=== PATIENT | female | born 2000 | race Caucasian/White ===

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

== ENCOUNTER 2019-04-02 03:40 | Inpatient (IN) | payer SELFPAY ==
[2019-04-02] MEDS: Lactated Ringers 500 ML 999 ML IV ×2 (04:45→06:06)
[2019-04-02 05:17] LABS: Absolute Lymphocyte Count 2.12 X10^3/uL (0.83-4.51); Absolute Neutrophil Count 12.4 X10^3/uL (2.0-7.7); Basophil# 0.03 X10^3/uL; Basophil% 0.2 % (0-1); Eosinophil# 0.07 X10^3/uL; Eosinophils% 0.4 % (0-5); Hematocrit 39.9 % (37-47); Hemoglobin 12.9 g/dL (12.0-15.0); Lymphocyte # 2.12 X10^3/ul (4.0); Lymphocyte % 13.4 % (19-41); Mean Corp Hgb Conc 32.3 g/dL (32-36); Mean Corpuscular Hgb 30.4 pg (27.0-32.0); Mean Corpuscular Volume 94.1 fL (81-99); Mean Platelet Vol. 10.8 fl (6.2-12.0); Monocyte# 1.18 X10^3/uL; Monocyte% 7.4 % (0-10); NRBC Flagged by Analyzer 0 % (0-5); Neutrophil # 12.37 X10^3/uL (2.7-7.7); Neutrophil % 77.9 % (47-70); Platelet Count 224 K/mm3 (150-450); RBC Distribution Width CV 13.3 % (11.6-14.6); RBC Distribution Width SD 45.6 fl (35.1-43.9); Red Blood Count 4.24 M/mm3 (4.2-5.4); White Blood Count 15.9 K/mm3 (4.4-11.0)
[2019-04-02] MEDS: Lactated Ringers 1,000 ML 200 ML IV ×2 (05:45→08:17)
[2019-04-02] MEDS: fentaNYL-bupivacaine (epidural) 100 ML BAG EPIDURAL (06:24)
--- NOTE | 2019-04-02 08:33 | PCM.HP.OB ---
History Date of Admission: 04/02/19 Final SHERRY: 04/02/19 Final SHERRY Source: US <20 weeks Gestational age: 40 Weeks and 0 Days History of this : This is a 18 year-old, avid 2 para 1 presented at 40 weeks gestation complaining contractions started on the evening of 04/01/2019. When she arrived to labor and delivery early in the morning of 04/02/2019 she was found to be riaz regularly and in labor. was complicated to date by history of depression, tobacco use, history of chlamydia. She has a history of one previous full-term vaginal delivery. Allergies azithromycin [From Zithromax] Allergy (Verified 10/28/17 19:56) Anaphylaxis brompheniramine [From Dimetapp (brompheniramine-PPA)] Allergy (Verified 10/28/17 19:56) Rash phenylpropanolamine [From Dimetapp (brompheniramine-PPA)] Allergy (Verified 10/28/17 19:56) Rash Home Medications: Home Medications Ferrous Sulfate 2 tab PO DAILY 04/02/19 Prenatabs FA 1 tab PO DAILY 04/02/19 Smoking Status: Light Smoker (<10/day) Alcohol: None Number of Fetus(es): 1 NST - FHR Rate Baby A Baseline: normal Variability:: Moderate NST Reactive:: Appropriate for gestational age Uterine Activity:: regular ctxs History Past Pregnancies: Past Pregnancies Delivery Date Name GA/ Weeks Outcome Route Wt Infant Sex Labor Length Anesthesia Delivery Location Provider FOB Expected Delivery Method: Spontaneous Vaginal Review of Systems Constitutional: Denies: Chills, Fever Cardiovascular: Denies: Chest Pain Respiratory: Denies: Cough Genitourinary: Denies: Dysuria Neurological: Denies: Balance problems, Blurred vision Physical Exam General: Alert, Cooperative, No apparent distress Lungs: Normal air movement Abdomen: Soft, Non Tender, Non-Distended, Gravid, Appropriate for Gestational Age Assessment/Plan This is a 18 year-old, avid 2 para 1 at 40 weeks gestation in active labor. Estimated weight is less than 4500 g clinically and pelvis is clinically adequate to expect vaginal delivery. May have epidural, nitrous oxide or IV pain medication as needed for pain control and as indicated.
[2019-04-02] MEDS: Oxytocin 30 units/NS 500 ml 30 UNITS/500 ML IV.SOLN 334 UNITS IV (10:36)
--- NOTE | 2019-04-02 10:50 | PCM.OPRPT ---
Vaginal Delivery Maternal Presentation: Active Labor Amniotic Membrane Rupture Type: Artificial Amniotic Fluid Description: Clear Final SHERRY: 04/02/19 Final SHERRY Source: US <20 weeks Gestational age: 40 Weeks and 0 Days Date of Procedure: 04/02/19 Pre-Operative Diagnosis: labor Post-Operative Diagnosis: same Surgery/ Procedure Performed: Spontaneous Vaginal Delivery Type of Anesthesia: Epidural Description of Procedure: A vigorous female was delivered ROT over a second-degree perineal laceration. The remainder the was delivered with maternal pushing and gentle traction only in less than 15 seconds. The Pitocin infusion was initiated for active management of the third stage. The cord was clamped and cut after 1 minute. The infant was attended to by the waiting nursing staff. The placenta was delivered spontaneously and intact. The cervix and vagina were intact. The second-degree perineal laceration was repaired with 3-0 Vicryl suture in a running standard fashion. Sponge and needle counts were correct. A vaginal sweep was completed by me. Placental Delivery Description: Spontaneous Placenta Disposition: [facility] Cord Vessel Description: 3 Vessels Cord Entanglement: None Drain: Jose to straight drain Estimated Blood Loss: 300 Infant A gender: Female (1 minute): 9 (5 minute): 9 Episiotomy Description: None Laceration: 2nd degree - perineal Medications given after delivery: IV Pitocin Complications: None
[2019-04-02 15:29] VITALS: BP 103/57; PULSE 79; RESP 16; TEMP 37.1; O2SAT 97
--- NOTE | 2019-04-02 15:59 | NURSING ---
bruising noted to right side of perineum next to lac repair, soft to touch, will continue to monitor.
[2019-04-02] MEDS: Naproxen 250 MG Tablet 500 MG PO (20:05)
[2019-04-02 20:49] VITALS: BP 89/51; PULSE 76; RESP 16; TEMP 36.4
[2019-04-03 00:19] VITALS: BP 83/66; PULSE 94; RESP 16; TEMP 36.7
[2019-04-03 04:09] VITALS: BP 106/61; PULSE 78; RESP 16; TEMP 36.2
--- NOTE | 2019-04-03 09:17 | PCM.PN.OB ---
Subjective: Unable to void last night, catheter back in. Patient reports she had same problem after last delivery. Average lochia. - Physical Exam Vitals/I&O's: Vital Signs Temp Pulse Resp BP Pulse Ox 97.1 F L 78 16 106/61 97 04/03/19 04:09 04/03/19 04:09 04/03/19 04:09 04/03/19 04:09 04/02/19 15:29 Oxygen Delivery Method Room Air Weight: 70.307 kg Intake and Output for Last 24 Hours 04/01/19 04/02/19 04/03/19 23:59 23:59 23:59 Intake Total 3666.17 / 3666.17 Output Total 3400 / 3400 675 / 675 Balance 266.17 / 266.17 -675 / -675 General: Alert, Cooperative, No apparent distress Laboratory Results 04/02/19 12:35: Screen NEGATIVE, Baby's Blood Type A POSITIVE, Baby's TATE NEGATIVE Current Medications Acetaminophen (Tylenol) 1,000 mg PO Q8H PRN PRN PRN Reason: Pain Score 1-3/10 Bisacodyl (Dulcolax) 10 mg RECTAL UD PRN PRN Reason: If no BM Dibucaine (Dibucaine) 1 applic TOPICAL TID PRN PRN; Protocol PRN Reason: Discomfort Hydrocortisone (Hytone) 1 applic TOPICAL TID PRN PRN; Protocol PRN Reason: Discomfort Methylergonovine Maleate (Methergine) 0.2 mg IM X1 PRN PRN Reason: Excess bleeding/uterine atony Naproxen (Naprosyn) 500 mg PO Q8H PRN PRN PRN Reason: Pain Score 1-3/10 Last Admin: 04/02/19 20:05 Dose: 500 mg Documented by: Ondansetron HCl (Zofran) 4 mg IV Q4H PRN PRN PRN Reason: Nausea Prochlorperazine Edisylate (Compazine Iv) 10 mg IV Q6H PRN PRN PRN Reason: NAUSEA/VOMITING Senna/Docusate Sodium (Senokot-S, Airam-Colace) 1 - 2 tablet PO DAILY PRN PRN PRN Reason: Constipation Simethicone (Mylicon) 80 mg PO PCHS PRN PRN Reason: Indigestion/Stomach pain Sodium Chloride () 5 - 15 ml IV UD PRN PRN Reason: SALINE FLUSH Medical Necessity - Tobacco Use Smoking Status: Light Smoker (<10/day) Assessment/Plan PPD#1 s/p is and doing well d/c moise and voiding trial today ok for d/c home later if desires
[2019-04-03 10:15] VITALS: BP 94/48; PULSE 78; RESP 16; TEMP 36.6; O2SAT 97
--- NOTE | 2019-04-03 13:03 | DCINST_ITS ---
Discharge Diet: No Restrictions Discharge Activity: Return to Normal Activity, May not drive while taking narcotic pain medications., May Shower May resume sexual activity in: 4-6 weeks Additional Activity Instructions:: Nothing in the vagina for 4-6 weeks. You may return to work/school in 6 weeks. Call your doctor if your incision/area has: Continuous Slow Oozing, Sudden Increased Bleeding, Increased Pain/ Swelling, Increased Redness, Foul Smelling Discharge Additional Instructions: If you experience any of the following, contact your healthcare provider. * Bleeding that soaks a pad every hour for 2 hours * Fever 100.4 or higher * Unrelieved incision or abdominal pain * Swelling, redness, discharge or bleeding from your incision or episiotomy site * Your incision begins to separate * Problems urinating (including inability to urinate or burning while urinating). * Visual changes * Severe headache * Flu-like symptoms * Pain or redness in one of both of your breasts * Pain, warmth, tenderness or swelling in your legs, especially the calf area * Frequent nausea and vomiting * Symptoms of depression or anxiety If you experience any of the following, call 911 or go to the nearest Emergency Room. * Chest pain * Problems breathing * Seizure activity * Partial or complete paralysis of a body part, slurred speech, weakness or drooping of the face, or a sudden inability to walk or hold your balance Allergies/Adverse Reactions: Allergies azithromycin [From Zithromax] Allergy (Verified 10/28/17 19:56) Anaphylaxis brompheniramine [From Dimetapp (brompheniramine-PPA)] Allergy (Verified 10/28/17 19:56) Rash phenylpropanolamine [From Dimetapp (brompheniramine-PPA)] Allergy (Verified 10/28/17 19:56) Rash Medications to take at Discharge Ferrous Sulfate 2 tab PO DAILY 04/02/19 Prenatabs FA 1 tab PO DAILY 04/02/19 Ibuprofen [Motrin] 800 mg PO TID PRN PRN #60 tab 04/03/19 The following prescriptions were given: Ibuprofen [Motrin] 800 mg PO TID PRN PRN #60 tab PRN Reason: Pain Transmission Status: Pending to [facility]/pharmacy #[id number] Please Follow Up With: Mary Alice Perez MD - [phone] When: Call to make an appointment in our office in 1-2 and 6 weeks or as needed Primary Care Physician: Care Physician,No Primary [Primary Care Provider] - Test Results: Test results from this visit will be discussed in further detail at your follow- up appointment, if applicable.
[2019-04-03 14:10] VITALS: BP 104/59; PULSE 92; TEMP 36.3; O2SAT 96
== END 2019-04-03 18:00 | disposition home or self-care (01) | DRG 807 ==
PROVIDERS: Admitting Provider Obstetrics & Gynecology; Referring Provider Obstetrics & Gynecology; Visit Provider Obstetrics & Gynecology
DX: O70.1 Second degree perineal laceration during delivery (principal); Z37.0 Single live birth; Z3A.40 40 weeks gestation of pregnancy; O99.334 Smoking (tobacco) complicating childbirth; F17.200 Nicotine dependence, unspecified, uncomplicated
CPT/HCPCS: 59025; 59050; 85025; 85461; 86850; 86900; 86901; 90384; 99218; J7120; G0378; J2790

== ENCOUNTER 2020-08-12 11:10 | Emergency (ER) | payer MEDICAID, SELFPAY ==
[2020-08-12 11:11] VITALS: BP 117/74; PULSE 103; RESP 18; TEMP 36.8; O2SAT 100; BMI 19.5
--- NOTE | 2020-08-12 11:25 | RAD_ITS ---
EXAM: XR LEFT FOOT COMPLETE, 3 OR MORE VIEWS : 1998 CLINICAL INDICATION: Trauma TECHNIQUE: Frontal, lateral and oblique views of the left foot. This report was created using [employer] report generation technology. COMPARISON: None. FINDINGS: BONES/JOINTS: Unremarkable. No acute fracture. No subluxation. Normal alignment. Preservation of the joint space. No sclerotic or destructive changes observed. SOFT TISSUES: Unremarkable. No soft tissue swelling or gas. No radiopaque foreign body. RAD/Foot min 3 Views IMPRESSION: Intact left foot. at 1242 Reported and signed by: Emmanuel Romero MD Electronically Signed: Emmanuel Romero MD at 12:41 EDT Tel , Service support ,
--- NOTE | 2020-08-12 11:26 | ED.VIS.LOWEX ---
HPI History of Present Illness Chief Complaint: Lower Extremity Injury Informant: patient Occured/Mechanism Mechanism/Context: Yes blunt trauma Comment: accidentally dropped foot of a baby crib on her foot Onset/Context/Timing Onset: Yesterday Context: Sudden Onset Timing: Continuous Quality of Pain: Aching Location: left foot Current Severity: Mild Maximum Severity: Moderate Worsened by: mainly w/ bending toes while walking Relieved by: rest and remaining still Associated Symptoms Associated Symptoms: Negative for Parasthesia, Weakness and Loss of Funtion Narrative Narrative: Has been able to ambulate. No other injuries. PFSH PFSH no medical history Home Medications Ferrous Sulfate 2 tab PO DAILY 04/02/19 [History Last Taken Unknown] Prenatabs FA 1 tab PO DAILY 04/02/19 [History Last Taken Unknown] ibuprofen 800 mg PO TID PRN PRN #60 tab 04/03/19 [Rx Last Taken Unknown] Allergy/AdvReac Type Severity Reaction Status Date / Time azithromycin [From Zithromax] Allergy Anaphylaxis Verified 08/12/20 11:11 brompheniramine Allergy Rash Verified 08/12/20 11:11 [From Dimetapp (brompheniramine-PPA)] phenylpropanolamine Allergy Rash Verified 08/12/20 11:11 [From Dimetapp (brompheniramine-PPA)] Social History Smoking Status: Light Smoker (<10/day) ROS ROS ED Constitutional Constitutional ED: Denies chills or fever(s) Musculoskeletal Musculoskeletal: Reports extremity pain; Denies neck pain Integumentary Denies Abrasions, rash or wounds Neurologic Neurologic: Denies paresthesias or weakness EXAM Physical Exam Const Vital Signs: 08/12/20 11:11 Temperature 98.2 F Temperature Source Temporal Pulse Rate 103 H Respiratory Rate 18 Blood Pressure 117/74 Blood Pressure Mean 88 Pulse Ox 100 Oxygen Delivery Method Room Air Positive well nourished and well developed General Appearance ED: well developed and NAD Neck full ROM and supple Back/Spine normal ROM and normal to inspection Extremity Extremity Narrative: contusion and tenderness left forefoot, over approx metatarsals 2-4 involving MTPJs and distal midfoot; skin intact. No deformities. Toes NT. Neuro oriented x3, no focal motor deficits and no sensory deficits noted Sensorium / Orientation: alert Psych mental status grossly normal and thought process normal Skin no wounds Rashes: no rashes MDM MDM MDM Narrative Medical decision making narrative: On my interpretation, 3 view x-ray series of the left foot is negative for any fracture of the forefoot or midfoot. Patient was reassured, given a postop shoe, instructions for supportive care and reasons to follow-up. She is comfortable with that plan. Discharge Plan Triage Chief Complaint: Lower Extremity Injury ED Provider: Titus Becerra Dx/Rx/DC Orders Clinical Impression: Contusion of foot, left Instructions: ED Foot Contusion Prescriptions: No Action Ferrous Sulfate 2 tab PO DAILY RF: 0 Prenatabs FA 1 tab PO DAILY RF: 0 ibuprofen 800 MG tablet 800 mg PO TID PRN PRN (Reason: Pain) Qty: 60 RF: 1 Primary Care Provider: Care Physician,No Primary Referrals: Jacqui Kam [NON-STAFF] - As Needed Care Physician,No Primary [Primary Care Provider] - Disposition Disposition: Home, self care
== END 2020-08-12 12:09 | disposition home or self-care (01) ==
PROVIDERS: Emergency Provider Emergency Medicine
DX: S90.32XA Contusion of left foot, initial encounter (principal); W20.8XXA Other cause of strike by thrown, projected or falling object, initial encounter; Y93.89 Activity, other specified; Y92.89 Other specified places as the place of occurrence of the external cause; Y99.9 Unspecified external cause status; F17.210 Nicotine dependence, cigarettes, uncomplicated
CPT/HCPCS: 73630; 99283

== ENCOUNTER 2021-10-22 06:03 | Emergency (ER) | payer MEDICAID, SELFPAY ==
[2021-10-22 06:04] VITALS: BP 119/62; PULSE 112; RESP 18; TEMP 36.6; O2SAT 100; BMI 24.0
--- NOTE | 2021-10-22 06:25 | US_ITS ---
STUDY: SECOND AND THIRD TRIMESTER OBSTETRICAL ULTRASOUND REASON FOR EXAM: Female, 21 years old pelvic pain and bleeding LMP: 06/17/2021. TECHNIQUE: Transabdominal TECHNICAL QUALITY: Adequate. PRIOR ULTRASOUND: None. FINDINGS: There is a single intrauterine fetus. The fetus is in a cephalic presentation. There is demonstrated cardiac activity with a heart rate of 137 bpm. There is a normal amniotic fluid volume. The largest amniotic fluid pocket measures 6.4 cm x 4.7 cm. The amniotic fluid index (BABITA) is within normal limits. The placenta is anterior in location and is not low lying. There are Grade 0 placental changes. There is a 2.4 cm x 0.9 cm x 0.8 cm anechoic area between the inferior aspect of the placenta and the uterine wall. This may represent a focal hematoma. The cervix measures 3.7 cm in length. The bilateral adnexal regions are normal. BIOMETRY: BPD: 3.86 cm: 17 weeks, 5 days HC: 14.94 cm: 18 weeks, 0 days AC: 11.84 cm: 17 weeks, 4 days FL: 2.53 cm: 17 weeks, 5 days CI: 73% FL/BPD: 66% FL/HC: FL/AC: 21% HC/AC: 1.26 age by current US: 17 weeks, 6 days. SHERRY by current US: 03/26/2022. Estimated weight: 203 grams, +/- 30 grams, 19 %. Age by LMP: 18 weeks, 1 days. SHERRY by LMP: 03/24/2022. US/OB Limited With Biometrics IMPRESSION: Single live intrauterine gestation with a mean gestational age of 17 weeks and 6 days. 2.4 cm x 0.9 cm x 0.8 cm anechoic collection between the inferior wall of the placenta and uterine wall suggestive of possible hematoma. Electronically Signed: Yonis Oliva MD at 8:15 EDT ,
--- NOTE | 2021-10-22 06:25 | US_ITS ---
STUDY: RENAL ULTRASOUND - COMPLETE REASON FOR EXAM: Female, 21 years old. Abdominal pain. Patient is 18 weeks . TECHNIQUE: Ultrasound evaluation of the kidneys was performed with real-time and static mcqueen-scale imaging. COMPARISON: None. FINDINGS: RIGHT KIDNEY: Normal location of the right kidney, which is normal in size. The right kidney measures 11.5 cm x 4.7 cm x 3.8 cm. There is a normal cortex of the right kidney. The renal cortex measures 1.1 cm. There is no right renal mass or cyst. There are no right renal calculi. There is mild hydronephrosis of the right kidney. DISTAL RIGHT URETER: There is non-visualization of the distal right ureter. There is no demonstrated right ureterovesical junction calculus. There is no demonstrated right ureteral jet. LEFT KIDNEY: Normal location of the left kidney, which is normal in size. The left kidney measures 11.7 cm x 4.3 cm x 5.3 cm. There is a normal cortex of the left kidney. The renal cortex measures 1.8 cm. There is no left renal mass or cyst. There are no left renal calculi. There is no left hydronephrosis. DISTAL LEFT URETER: There is non-visualization of the distal left ureter. There is no demonstrated left ureterovesical junction calculus. There is no demonstrated left ureteral jet. BLADDER: The distended urinary bladder has a volume of 145 ml. There is a normal wall thickness of the distended urinary bladder. There is no demonstrated mass within the urinary bladder. There are no demonstrated bladder calculi. US/Kidney and Bladder IMPRESSION: Mild degree of right-sided hydronephrosis. Electronically Signed: Yonis Oliva MD at 8:02 EDT ,
[2021-10-22 06:36] LABS: Mucous, Urine 0 SEEN /hpf (<or=2+); Red Blood Cells-Urine 0 SEEN /hpf (0-5); White Blood Cells 0 SEEN /hpf (0-5)
[2021-10-22 06:37] LABS: Absolute Lymphocyte Count 2.54 X10^3/uL (0.83-4.51); Absolute Neutrophil Count 7.1 X10^3/uL (2.0-7.7); Basophil# 0.02 X10^3/uL; Basophil% 0.2 % (0-1); Eosinophil# 0.15 X10^3/uL; Eosinophils% 1.4 % (0-5); Hematocrit 39.2 % (37-47); Hemoglobin 13.1 g/dL (12.0-15.0); Lymphocyte # 2.54 X10^3/ul (0.83-4.51); Lymphocyte % 24.2 % (19-41); Mean Corp Hgb Conc 33.4 g/dL (32-36); Mean Corpuscular Hgb 31.5 pg (27.0-32.0); Mean Corpuscular Volume 94.2 fL (81-99); Mean Platelet Vol. 10.1 fl (6.2-12.0); Monocyte# 0.67 X10^3/uL; Monocyte% 6.4 % (0-10); NRBC Flagged by Analyzer 0 % (0-5); Neutrophil # 7.06 X10^3/uL (2.7-7.7); Neutrophil % 67.4 % (47-70); Platelet Count 183 K/mm3 (150-450); RBC Distribution Width CV 12.7 % (11.6-14.6); Red Blood Count 4.16 M/mm3 (4.2-5.4); White Blood Count 10.5 K/mm3 (4.4-11.0)
[2021-10-22 06:42] LABS: Color, Urine Yellow (Yellow); Glucose, Dipstick Normal (Normal); Ketone-Dipstick Negative (Negative); Leukocyte Esterase-Dipstick Negative /ul (Negative); Nitrite-Dipstick Negative (Negative); Occult Blood-Urine Negative /ul (Negative); Protein-Dipstick Negative (Negative); Specific Gravity, Urine 1.005 (1.002-1.030); Urine Bilirubin Dipstick Negative (Negative); Urine Clarity Clear (Clear); Urine Urobilinogen Normal (Normal)
[2021-10-22 06:48] LABS: Bacteria 1+ /hpf (None Seen); Squamous Epithelial Cells - UA 0-5 SEEN /hpf (5-10)
[2021-10-22 06:50] LABS: Anion Gap 6 (5-15); BUN 7 mg/dL (7-18); Calcium,Total 8.8 mg/dL (8.5-10.1); Chloride 106 mmol/L (98-107); Creatinine, Serum 0.47 mg/dL (0.55-1.02); EST Glomerular Filtration Rate 176 mL/min (>60); Est Glom Filt Rate - Afr Amer 213 mL/min (>60); Estimated Creatinine Clearance 147.24 ml/min; Glucose 84 mg/dL (74-106); Potassium 3.5 mmol/L (3.5-5.1); Sodium Level 137 mmol/L (136-145)
--- NOTE | 2021-10-22 07:08 | ED.VIS.FEGU ---
HPI HPI - Female History of Present Illness Chief Complaint: Vag Bld, Preg Narrative Narrative: Patient is a 21-year-old female who is a G3, P2 and approximately 18 weeks . She states that she was feeling some bilateral low back pain and some lower abdominal pain the other day so went and saw her [facility] [employer]. Reported there was some blood in the urine and there was concern for possible kidney stone. Patient states they did a pelvic exam at that time and her cervical os was closed. She states that today she has more pain in the suprapubic region and noticed some brownish blood in her underwear. She states this concerned her and therefore she comes in for evaluation [facility] Home Medications 1 tab DAILY 10/22/21 [History Last Taken Unknown] amoxicillin 500 mg capsule 500 mg PO TID 7 days #21 caps 10/22/21 [Rx Last Taken Unknown] ondansetron HCl 4 mg tablet 4 mg Q8 PRN Nausea 10/22/21 [History Last Taken Unknown] Allergy/AdvReac Type Severity Reaction Status Date / Time azithromycin [From Zithromax] Allergy Anaphylaxis Verified 10/22/21 06:13 brompheniramine Allergy Rash Verified 10/22/21 06:13 [From Dimetapp (brompheniramine-PPA)] phenylpropanolamine Allergy Rash Verified 10/22/21 06:13 [From Dimetapp (brompheniramine-PPA)] Surgical History History of tonsillectomy Social History Smoking Status: Light Smoker (<10/day) [facility] ED Constitutional Constitutional ED: Denies chills or fever(s) ENT ENT ED: Denies sore throat Cardiovascular Cardiovascular: Denies chest pain Respiratory/Chest Respiratory/Chest: Denies cough or dyspnea Gastrointestinal Gastrointestinal: Reports abdominal pain; Denies diarrhea, nausea or vomiting Genitourinary Genitourinary ED: Denies dysuria Musculoskeletal Musculoskeletal: Denies myalgias Integumentary Denies rash Neurologic Neurologic: Denies headache(s) Hematologic/Lymphatic Hematologic/Lymphatic: Denies easy bleeding or easy bruising EXAM Physical Exam Const Vital Signs: 10/22/21 06:04 Temperature 97.9 F Temperature Source Temporal Pulse Rate 112 H Respiratory Rate 18 Blood Pressure 119/62 Blood Pressure Mean 81 Pulse Ox 100 Oxygen Delivery Method Room Air Positive well nourished and well developed General Appearance ED: well developed Eyes PERRL and EOMs intact bilaterally Neck supple Resp normal respiratory effort and clear to auscultation bilaterally Cardio regular rate and regular rhythm GI non-distended GI Narrative: Abdomen is gravid with fundus consistent with reported gestational age. There is mild pain with palpation in the lower abdomen diffusely without voluntary guarding or rigidity Auscultation: normoactive bowel sounds Palpation: soft Narrative: Patient deferred as she had a pelvic exam the other day Back/Spine no CVA tenderness Extremity normal to inspection Extremity Narrative: No asymmetric edema no pitting edema negative Homans' sign bilaterally Neuro oriented x3 and CN's II-XII intact bilaterally Sensorium / Orientation: alert Psych Psych Narrative: Patient has a nervous/anxious affect Skin no rashes or lesions noted MDM MDM MDM Narrative Medical decision making narrative: Patient presented to the ER with a soft nonsurgical abdomen. She reported mainly more pain in the suprapubic region with vaginal bleeding. Secondary to this a basic work-up was ordered and ultrasound was added with her status and reported concern for kidney stone by [employer] [employer]. At this time her labs reveal +1 bacteria without any white blood cells or contamination but otherwise the remainder of her labs are within normal limit. Based on the +1 bacteria I will plan on starting the patient on amoxicillin and as long as her ultrasound did not reveal any acute findings she will be safe for discharge with outpatient [employer] [employer] follow-up. The patient will be signed out to Dr. Uriostegui pending results of ultrasound Lab Data Attestation: I reviewed the patient's lab results. Labs: Laboratory Results - last 24 hr 10/22/21 10/22/21 10/22/21 06:10 06:10 06:10 WBC 10.5 RBC 4.16 L Hgb 13.1 Hct 39.2 MCV 94.2 MCH 31.5 MCHC 33.4 RDW Std Deviation 44.0 H RDW Coeff of Anisha 12.7 Plt Count 183 MPV 10.1 Immature Gran % (Auto) 0.400 Neut % (Auto) 67.4 Lymph % (Auto) 24.2 Uinta % (Auto) 6.4 Eos % (Auto) 1.4 Baso % (Auto) 0.2 Absolute Neuts (auto) 7.1 Absolute Lymphs (auto) 2.54 Nucleated RBC % 0 Sodium 137 Potassium 3.5 Chloride 106 Carbon Dioxide 25.0 Anion Gap 6 BUN 7 Creatinine 0.47 L Estim Creat Clear Calc 147.24 Est GFR (MDRD) Af Amer 213 Est GFR (MDRD) Non-Af 176 BUN/Creatinine Ratio 15.0 Glucose 84 Calcium 8.8 HCG, Quant 26198 H Urine Color Urine Clarity Urine pH Ur Specific Philipp Urine Protein Urine Glucose (UA) Urine Ketones Urine Occult Blood Urine Nitrite Urine Bilirubin Urine Urobilinogen Ur Leukocyte Esterase Urine RBC Urine WBC Ur Squamous Epith Cells Urine Bacteria Urine Mucus Blood Type 10/22/21 10/22/21 06:10 06:40 WBC RBC Hgb Hct MCV MCH MCHC RDW Std Deviation RDW Coeff of Anisha Plt Count MPV Immature Gran % (Auto) Neut % (Auto) Lymph % (Auto) Uinta % (Auto) Eos % (Auto) Baso % (Auto) Absolute Neuts (auto) Absolute Lymphs (auto) Nucleated RBC % Sodium Potassium Chloride Carbon Dioxide Anion Gap BUN Creatinine Estim Creat Clear Calc Est GFR (MDRD) Af Amer Est GFR (MDRD) Non-Af BUN/Creatinine Ratio Glucose Calcium HCG, Quant Urine Color Yellow Urine Clarity Clear Urine pH 7.0 Ur Specific Philipp 1.005 Urine Protein Negative Urine Glucose (UA) Normal Urine Ketones Negative Urine Occult Blood Negative Urine Nitrite Negative Urine Bilirubin Negative Urine Urobilinogen Normal Ur Leukocyte Esterase Negative Urine RBC 0 SEEN Urine WBC 0 SEEN Ur Squamous Epith Cells 0-5 SEEN Urine Bacteria 1+ Urine Mucus 0 SEEN Blood Type A NEGATIVE Discharge Plan Triage Chief Complaint: Vag Bld, Preg ED Provider: Jesus Valera Dx/Rx/DC Orders Clinical Impression: Abdominal pain during in second trimester Prescriptions: New amoxicillin 500 mg capsule 500 mg PO TID 7 Days Qty: 21 0RF No Action ondansetron HCl 4 mg tablet 4 mg Q8 PRN (Reason: Nausea) 1 tab DAILY Primary Care Provider: Care Physician,No Primary Activity Restrictions/Additional Instructions: Please follow-up with your [employer] [employer] for repeat evaluation and return to the ER should you have any further concerns
[2021-10-22 07:26] LABS: hCG Titer Quant., Serum 11040 mIU/mL (1-3)
[2021-10-22 09:39] VITALS: BP 116/78; PULSE 88; RESP 16; O2SAT 98
== END 2021-10-22 09:39 | disposition home or self-care (01) ==
PROVIDERS: Emergency Provider Emergency Medicine; Visit Provider Emergency Medicine
DX: O26.892 Other specified pregnancy related conditions, second trimester (principal); R10.9 Unspecified abdominal pain; Z3A.17 17 weeks gestation of pregnancy; O99.332 Smoking (tobacco) complicating pregnancy, second trimester; F17.200 Nicotine dependence, unspecified, uncomplicated; M54.50 Low back pain, unspecified
CPT/HCPCS: 76770; 76816; 80048; 81001; 84702; 85025; 86900; 86901; 99282; A4216

== ENCOUNTER 2021-12-02 21:48 | Outpatient (CLI) | payer MEDICAID, SELFPAY ==
[2021-12-02 22:02] VITALS: PULSE 93; O2SAT 99
[2021-12-02 22:03] VITALS: BP 113/68; PULSE 94; TEMP 36.7
[2021-12-02 22:07] VITALS: BMI 24.5
--- NOTE | 2021-12-02 22:35 | OB.TRI.NOTE ---
HPI - General HPI Narrative VERONICA MALDONADO, is a 21 F at 24 weeks gestation who presents to triage with pelvic pressure and pain. She is unsure if leaking fluid at times. Reports lower pelvic pain when walking. Denies any vaginal bleeding. No recent intercourse. She reports having pelvic pain throughout the . Denies ay cramps or contractions. Positive movement. Maternal Data Information SHERRY Calculator Estimated Delivery Date Method Current WG Current Estimate 03/24/22 Manual 24w 1d PFSH PFSH Home Medications 1 tab PO/SL DAILY 10/22/21 [History Last Taken 12/01/21 21:00] Allergy/AdvReac Type Severity Reaction Status Date / Time azithromycin [From Zithromax] Allergy Anaphylaxis Verified 12/02/21 22:08 brompheniramine Allergy Rash Verified 12/02/21 22:08 [From Dimetapp (brompheniramine-PPA)] phenylpropanolamine Allergy Rash Verified 12/02/21 22:08 [From Dimetapp (brompheniramine-PPA)] Surgical History History of tonsillectomy Social History Smoking Status: Light Smoker (<10/day) History Elective abortions Hx Para 1 Spontaneous abortions Hx # Term Pregnancies Ectopic pregnancies Hx # Pregnancies Multiple births # of living children ROS Eyes Eyes: Denies blurry vision Cardiovascular Cardiovascular: Reports none; Denies chest pain at rest, chest pain with activity or dizziness Respiratory/Chest Respiratory/Chest: Denies cough or dyspnea Gastrointestinal Gastrointestinal: Reports none and other; Denies diarrhea or vomiting Genitourinary Genitourinary: Denies dysuria Musculoskeletal Musculoskeletal: Reports none Integumentary Integumentary: Reports none; Denies rash Neurologic Neurologic: Denies dizziness, headache(s) or other visual disturbances Psychiatric Psychiatric: Reports none Physical Exam Const alert and no apparent distress General Appearance: cooperative Orientation / Consciousness: awake Exam Limitations: no limitations HEENT normocephalic Eyes General Eye: normal appearance of both eyes Neck full ROM Chest inspection of chest normal Resp normal respiratory effort and normal air movement Effort and Inspection: symmetric chest movement Auscultation: clear to auscultation bilaterally Cardio regular rate GI soft to palpation, non-tender and non-distended Inspection: and other Back/Spine normal ROM Extremity full ROM, normal capillary refill and no calf tenderness Skin no rashes or lesions noted Neuro oriented x3 and CN's II-XII intact bilaterally Psych mental status grossly normal NST FHR Rate Baby A Baseline: 140 Uterine Activity:: NONE Assessment & Plan (1) 24 weeks gestation of : (2) Pelvic pressure in : PLAN: Plan ROM plus collected and sent- negative UA sent- negative Reports feeling better since arrival Suspect round ligament pain D/C home with follow up in office
[2021-12-02 23:08] LABS: Color, Urine Yellow (Yellow); Glucose, Dipstick Normal (Normal); Ketone-Dipstick Negative (Negative); Leukocyte Esterase-Dipstick Negative /ul (Negative); Nitrite-Dipstick Negative (Negative); Occult Blood-Urine Negative /ul (Negative); Protein-Dipstick Negative (Negative); Specific Gravity, Urine 1.015 (1.002-1.030); Urine Bilirubin Dipstick Negative (Negative); Urine Clarity Clear (Clear); Urine Urobilinogen Normal (Normal)
[2021-12-02 23:26] LABS: ROM Internal Control Test YES-OK TO RESULT pt. (Internal QC)
[2021-12-02 23:27] LABS: ROM Patient Test Negative (Negative)
== END 2021-12-03 00:48 | disposition home or self-care (01) ==
LOC: WPOUT 21:53 → WP 21:54
PROVIDERS: Visit Provider Advanced Practice Midwife
DX: O26.892 Other specified pregnancy related conditions, second trimester (principal); R10.2 Pelvic and perineal pain; O99.332 Smoking (tobacco) complicating pregnancy, second trimester; F17.200 Nicotine dependence, unspecified, uncomplicated; Z3A.24 24 weeks gestation of pregnancy
CPT/HCPCS: 59025; 59050; 81002; 84112; 99218; G0378

== ENCOUNTER 2022-01-17 17:23 | Outpatient (CLI) | payer MEDICAID, SELFPAY ==
[2022-01-17 17:35] VITALS: BP 130/60; PULSE 88; TEMP 36.2
[2022-01-17 17:36] VITALS: PULSE 97; O2SAT 98
[2022-01-17 17:38] VITALS: BMI 26.2
--- NOTE | 2022-02-11 13:50 | OB.TRI.NOTE ---
HPI - General HPI Narrative VERONICA MALDONADO, is a 21 F who presents Maternal Data Information SHERRY Calculator Estimated Delivery Date Method Current WG Current Estimate 03/24/22 Manual 34w 1d Final SHERRY: 03/24/22 Gestational age: 30&4 PFSH PFSH Home Medications 1 tab PO/SL DAILY 10/22/21 [History Last Taken 01/16/22 21:00] Allergy/AdvReac Type Severity Reaction Status Date / Time azithromycin [From Zithromax] Allergy Anaphylaxis Verified 01/21/22 12:11 brompheniramine Allergy Rash Verified 01/21/22 12:11 [From Dimetapp (brompheniramine-PPA)] phenylpropanolamine Allergy Rash Verified 01/21/22 12:11 [From Dimetapp (brompheniramine-PPA)] Surgical History History of tonsillectomy Social History Smoking Status: Light Smoker (<10/day) History Elective abortions Hx Para 1 Spontaneous abortions Hx # Term Pregnancies Ectopic pregnancies Hx # Pregnancies Multiple births # of living children Assessment & Plan (1) Pelvic pressure in : PLAN: Plan NST completed
== END 2022-01-17 18:10 | disposition home or self-care (01) ==
LOC: WPOUT 17:27 → WP 17:28
PROVIDERS: Referring Provider Obstetrics & Gynecology; Visit Provider Obstetrics & Gynecology
DX: O26.893 Other specified pregnancy related conditions, third trimester (principal); R10.2 Pelvic and perineal pain; Z3A.30 30 weeks gestation of pregnancy; O99.333 Smoking (tobacco) complicating pregnancy, third trimester; F17.210 Nicotine dependence, cigarettes, uncomplicated
CPT/HCPCS: 59025; 59050

== ENCOUNTER 2022-01-21 12:08 | Emergency (ER) | payer MEDICAID, SELFPAY ==
[2022-01-21 12:09] VITALS: BP 131/74; PULSE 99; RESP 16; TEMP 36.6; O2SAT 98; BMI 26.5
[2022-01-21] MEDS: 0.9% Normal Saline 1,000 ML 999 ML IV (13:30)
--- NOTE | 2022-01-21 13:45 | CM.ED ---
SW Note Referral Source: Case Find Referral Reason: No Primary Care Physician (PCP) SW reviewed chart and noted that patient has no PCP. SW provided patient with list of [facility] and [facility]ician List for reference. No other issues or concerns voiced at this time. SW remains available for any additional needs. Plan: Provided patient with PCP information Fiona DE JESUS
--- NOTE | 2022-01-21 13:51 | EX.ED.VIS.UR ---
HPI <TRINITY Lantigua - Last Filed: 01/21/22 16:26> HPI - URI History of Present Illness Chief Complaint: Sore Throat Narrative Narrative: Patient presents with cold-like symptoms that she has had for around 2 weeks. She states she has a sore throat, headache, and nasal congestion. States her throat pain really is only there in the morning when she wakes up and gets much better through the day. Her daughter was recently treated for strep throat. She is 31 weeks and states she feels dehydrated and has not been drinking as much due to her throat hurting. She denies fever, difficulty breathing, shortness of breath, difficulty swallowing, nausea, abdominal pain, vomiting, and diarrhea. ROS <TRINITY Lantigua - Last Filed: 01/21/22 16:26> ROS ED Constitutional Constitutional ED: Denies chills, fever(s) or sweats Eyes Eyes: Denies blurry vision or change in vision ENT ENT ED: Reports nasal congestion and sore throat; Denies ear pain, neck pain, rhinorrhea or throat swelling Cardiovascular Cardiovascular: Denies chest pain Respiratory/Chest Respiratory/Chest: Denies cough, dyspnea, dyspnea on exertion, shortness of breath at rest or shortness of breath with exertion Gastrointestinal Gastrointestinal: Denies abdominal pain, diarrhea, nausea or vomiting Genitourinary Genitourinary ED: Denies dysuria or hematuria Musculoskeletal Musculoskeletal: Denies back pain, myalgias or neck pain Integumentary Denies abscess, Abrasions or rash Neurologic Neurologic: Reports headache(s); Denies paresthesias or weakness PFSH <TRINITY Lantigua - Last Filed: 01/21/22 16:26> PFSH Home Medications 1 tab PO/SL DAILY 10/22/21 [History Last Taken 01/16/22 21:00] Allergy/AdvReac Type Severity Reaction Status Date / Time azithromycin [From Zithromax] Allergy Anaphylaxis Verified 01/21/22 12:11 brompheniramine Allergy Rash Verified 01/21/22 12:11 [From Dimetapp (brompheniramine-PPA)] phenylpropanolamine Allergy Rash Verified 01/21/22 12:11 [From Dimetapp (brompheniramine-PPA)] Surgical History History of tonsillectomy Social History Smoking Status: Light Smoker (<10/day) EXAM <TRINITY Lantigua - Last Filed: 01/21/22 16:26> Physical Exam Const Vital Signs: 01/21/22 12:09 Temperature 97.8 F Temperature Source Temporal Pulse Rate 99 Respiratory Rate 16 Blood Pressure 131/74 H Blood Pressure Mean 93 Pulse Ox 98 Oxygen Delivery Method Room Air Positive well nourished and well developed General Appearance ED: well developed HEENT Reports dry mucous membranes HEENT Narrative: Posterior oropharynx slightly erythematous without exudate. normocephalic and atraumatic Mouth ED: Yes dry mucous membranes Mouth: dry mucous membranes Eyes PERRL and EOMs intact bilaterally Neck no lymphadenopathy, supple and no meningeal signs General: Negative for anterior neck swelling Resp normal respiratory effort and clear to auscultation bilaterally Cardio no murmurs Rate: regular rate Rhythm: regular rhythm GI non-tender, non-distended and no masses Palpation: soft Back/Spine normal ROM Extremity normal to inspection and full ROM Neuro oriented x3, CN's II-XII intact bilaterally and no sensory deficits noted Sensorium / Orientation: alert Motor Exam: strength 5/5 throughout Psych mental status grossly normal Skin Lesions: no lesions Rashes: no rashes Trauma: Negative for abrasion <Dr. Mikel Warner MD - Last Filed: 01/21/22 15:38> Physical Exam Const Vital Signs: 01/21/22 12:09 Temperature 97.8 F Temperature Source Temporal Pulse Rate 99 Respiratory Rate 16 Blood Pressure 131/74 H Blood Pressure Mean 93 Pulse Ox 98 Oxygen Delivery Method Room Air MDM <TRINITY Lantigua - Last Filed: 01/21/22 16:26> [facility] Narrative Medical decision making narrative: Due to patient stating her urine has been dark and she feels dehydrated she has been given a liter of fluids. Strep test was negative. Patient's vital signs are within normal limits and have remained stable. After being given fluids patient states she feels much better. She says her throat pain is very minimal at the moment. I have given her return instructions and patient is comfortable with the plan. I am comfortable with patient discharging home. <Dr. Mikel Warner MD - Last Filed: 01/21/22 15:38> [facility] Treatment and Re-Evaluation Narrative: I have personally performed a face to face assessment of the patient and have reviewed the IVONNE Note. I performed a substantive portion of the visit including all aspects of the following. My siegel findings include: History: Patient was sent over from urgent care needing IV fluids.Patient states both her and her daughter have a slight sore throat. The daughter was diagnosed with strep throat today. However, there was not a culture swab done. They were diagnosed based on their symptoms. Mom stated that she has had a little bit of a runny nose, occasional sore throat in the morning, nonproductive cough but no dyspnea and some tiredness.She also feels that her lips are dry. She denies dysuria urgency or frequency. No abdominal or pelvic pain. She is currently approximately 31 weeks .Her appetite is down but she has no nausea and vomiting. She is able to eat and drink she just does not have a desire to do so as much.Because of this, I was concerned that she was dehydrated and sent here. Exam:Patient is awake alert very nontoxic. Stable gait. Mucous membranes moist. No sinus tenderness. No sign of significant erythema or exudate or lymphadenopathy. Lungs are clear. Heart is regular. Abdomen is gravid but otherwise benign. Medical Decison Making:Patient was given IV fluids here. We did a strep screen that was negative. I think this patient and her daughter likely have viral syndrome. I think time rest and fluids will be appropriate. Discharge Plan Triage Chief Complaint: Sore Throat Other Complaint: Complaint ED Midlevel Provider: Rosa Hood ED Provider: Mikel Warner Dx/Rx/DC Orders Clinical Impression: 31 weeks gestation of , Viral URI Instructions: ED URI, Viral, No Abx (Adult) Prescriptions: No Action 1 tab PO/SL DAILY Primary Care Provider: Care Physician,No Primary Referrals: Care Physician,No Primary [Primary Care Provider] - Activity Restrictions/Additional Instructions: You can try using a humidifier at night to help with your throat pain. You can use throat lozenges to help ease throat pain. Please return if symptoms worsen. Stay well-hydrated to prevent dehydration. Disposition Disposition: Home, Self Care Discharge Date/Time: 01/21/22 15:42
== END 2022-01-21 15:42 | disposition home or self-care (01) ==
PROVIDERS: Emergency Provider Emergency Medicine; Visit Provider Emergency Medicine
DX: O99.513 Diseases of the respiratory system complicating pregnancy, third trimester (principal); O99.333 Smoking (tobacco) complicating pregnancy, third trimester; J06.9 Acute upper respiratory infection, unspecified; F17.200 Nicotine dependence, unspecified, uncomplicated; Z3A.31 31 weeks gestation of pregnancy
CPT/HCPCS: 87880; 96360; 99284; J7030

== ENCOUNTER 2022-02-28 23:30 | Inpatient (IN) | payer MEDICAID, SELFPAY ==
[2022-02-28 22:19] VITALS: PULSE 96; O2SAT 97
[2022-02-28 22:22] VITALS: BP 121/70; PULSE 101; PULSE 106; TEMP 36.9; O2SAT 97
[2022-02-28 22:29] VITALS: BMI 27.2
[2022-02-28 23:12] LABS: ROM Internal Control Test YES-OK TO RESULT pt. (Internal QC)
[2022-02-28 23:13] LABS: ROM Patient Test POSITIVE (Negative)
[2022-02-28] MEDS: Lactated Ringers 1,000 ML 50 ML IV (23:50)
[2022-03-01] VITALS (61 sets, daily range): BP systolic 81–126; BP diastolic 41–66; PULSE 58–94; RESP 16; TEMP 36.2–36.7; O2SAT 97–100
[2022-03-01 00:01] LABS: Absolute Lymphocyte Count 2.87 X10^3/uL (0.83-4.51); Absolute Neutrophil Count 11.2 X10^3/uL (2.0-7.7); Basophil# 0.04 X10^3/uL; Basophil% 0.3 % (0-1); Eosinophil# 0.25 X10^3/uL; Eosinophils% 1.6 % (0-5); Hematocrit 37.1 % (37-47); Hemoglobin 11.9 g/dL (12.0-15.0); Lymphocyte # 2.87 X10^3/ul (0.83-4.51); Lymphocyte % 18.2 % (19-41); Mean Corp Hgb Conc 32.1 g/dL (32-36); Mean Corpuscular Volume 90.3 fL (81-99); Mean Platelet Vol. 10.4 fl (6.2-12.0); Monocyte# 1.33 X10^3/uL; Monocyte% 8.4 % (0-10); NRBC Flagged by Analyzer 0 % (0-5); Neutrophil # 11.19 X10^3/uL (2.7-7.7); Neutrophil % 70.8 % (47-70); Platelet Count 247 K/mm3 (150-450); RBC Distribution Width CV 13.4 % (11.6-14.6); RBC Distribution Width SD 44.3 fl (35.1-43.9); Red Blood Count 4.11 M/mm3 (4.2-5.4); White Blood Count 15.8 K/mm3 (4.4-11.0)
[2022-03-01] MEDS: Oxytocin 15 Units/NS 250ml 15 UNITS/250 ML IV.SOLN 2 UNITS IV (01:38)
[2022-03-01] MEDS: Penicillin G 3,000,000 Units 50 ML 100 UNITS IV ×2 (05:06→09:15)
[2022-03-01 05:18] LABS: Group B Strep DNA By PCR Negative (Negative); Internal Control PASS; Probe Check PASS; Specimen Processing Control PASS
[2022-03-01] MEDS: LACTATED RINGERS 500 ML 999 ML IV ×2 (07:49→09:30)
[2022-03-01] MEDS: fentaNYL-bupivacaine (epidural) 100 ML BAG EPIDURAL (08:25)
[2022-03-01] MEDS: ePHEDrine Sulfate 50 MG/ML Ampul 10 MG IV (09:46)
[2022-03-01] MEDS: 0.9% Saline Lock 10 ML Syringe IV (09:50)
--- NOTE | 2022-03-01 12:34 | PLAC_PTH ---
PATIENT: VERONICA MALDONADO LOC: WP U#:[id number] AGE/SX: ROOM: WP010 RE02/28/[address]: Pamela Schultz CNM : 2000 BED: 1 DIS: 03/02/2022 SPEC #: [id number] RECD: 03/01/22 12:34 STATUS: MICAH REQ #: [id number] KENDALL: 03/01/22 12:[address]: Pamela Schultz DEPT: SURGICAL PATHOLOGY RECD BY: Fiona Jimenez ENTERED: 03/03/22 10:34 SP TYPE: PLACENTA OTHR DR: No Primary Care Phys Tissues: Placenta, NOS Procedures: Surgery Specimen Level V HEADER OPERATION: Vaginal delivery PRE-OP DIAGNOSIS: Possible abruption TISSUE SUBMITTED: Placenta MICROSCOPIC DIAGNOSIS Iniguez placenta (398 gm): Umbilical cord ? trivascular with no inflammation. Placental membranes ? occasional pigmented macrophages suggestive of meconium staining. Mild chronic decidual inflammation. Placental disc - focal organizing hemorrhage, Tad-Mohan change and focal micro-calcifications. AM:maurisio 03/05/2022 MICROSCOPIC DESCRIPTION Slides are reviewed. GROSS DESCRIPTION SPECIMEN: PLACENTA / CLINICAL INFORMATION: A. Weight: 2.675 kg B. Gestational Age: 36 weeks C. Sex: Male PLACENTAL WEIGHT (POST FIXATION): 398 gm PLACENTAL DIMENSIONS: 16 x 16 x 3.5 cm PLACENTAL SHAPE: Usual ovoid. It is partially disrupted, however, appears to be complete. PLACENTAL WEIGHT FOR GESTATIONAL AGE: Within 10-99th percentile (over/under percentile) MEMBRANES - Present A. Insertion: Marginal. They are inserted around whole circumference of placenta 1-2 cm away from the margin. B. Site of rupture from edge: 3 cm from edge of placental disc C. Color of membrane: Walters-gamez D. Abnormalities: None UMBILICAL CORD - Present A. Color: Walters-gamez B. Insertion: Central C. Length: 43 cm D. Diameter: 1 cm E. Number of vessels: Three F. Abnormalities: None PLACENTAL DISC - Present A. Color of surface: Walters-gamez B. surface abnormalities: None C. Maternal cotyledons: Intact with minimal tears D. Attached retro placental clot: No clot E. Cut surface: Dark red and spongy F. Lesions: None G. Separate clot: Absent SECTIONS SUBMITTED: 1. Membrane roll 2. Cord, maternal end, insertion of membrane away from the margin 3. Cord, end, insertion of membrane away from the margin 4. Placental disc, and maternal surfaces 5. Placental disc, and maternal surfaces 6. Placental disc, and maternal surfaces FERNIE:maurisio 03/04/2022 TC:3 CPT: 42615
--- NOTE | 2022-03-01 13:01 | HP.PCM.OB_ITS ---
HPI - General General Date of Admission: 02/28/22 HPI Narrative VERONICA MALDONADO, is a 21 F who presents at 36w4d for PPROM upon arrival. Patient states membranes ruptured at home around 0700 yesterday morning but did not present to the hospital till 2200 last night. Good movement. Offers no other complaints. Maternal Data Information SHERRY Calculator Estimated Delivery Date Method Current WG Current Estimate 03/24/22 Manual 36w 5d PFSH PFSH Medical History (Updated 03/01/22 @ 16:08 by Pamela Schultz CNM) Chlamydia infection affecting Depression depression Home Medications 1 tab PO/SL DAILY 10/22/21 [History Last Taken 02/27/22 22:00] Allergy/AdvReac Type Severity Reaction Status Date / Time azithromycin [From Zithromax] Allergy Anaphylaxis Verified 01/21/22 12:11 brompheniramine Allergy Rash Verified 01/21/22 12:11 [From Dimetapp (brompheniramine-PPA)] phenylpropanolamine Allergy Rash Verified 01/21/22 12:11 [From Dimetapp (brompheniramine-PPA)] Surgical History History of tonsillectomy Social History Smoking Status: Light Smoker (<10/day) History Elective abortions Hx Para 2 Spontaneous abortions Hx # Term Pregnancies Ectopic pregnancies Hx # Pregnancies Multiple births # of living children Visit Details OB Flowsheet Initial Weight: Not Recorded Date -?-?-?-?-?-?-?-?-?-?-?-?- EGA Weight BP Urine Prot -?-?-?-?-?-?-?-?-?-?-?-?- Glucose FHR FuHt Pres Dilation -?-?-?-?-?-?-?-?-?-?-?-?- Effaced St Visit Note 02/28/22 -?-?-?-?-?-?-?-?-?-?-?-?- 36w 4d 149 lb 121/70 121/70 102/55 93/52 100/61 91/50 95/53 102/62 101/59 110/66 102/58 94/52 99/57 97/55 101/51 98/54 101/52 108/54 103/57 84/43 81/41 84/48 94/55 94/55 96/51 93/54 100/55 96/51 97/52 102/52 114/61 107/58 106/57 109/59 123/55 126/51 101/51 106/52 100/52 96/51 122/65 106/52 103/57 109/56 97/53 100/55 -?-?-?-?-?-?-?-?-?-?-?-?- -?-?-?-?-?-?-?-?-?-?-?-?- NST FHR Rate Baby A Baseline: 125 Variability:: Moderate Accelerations:: 15 x 15 Decelerations:: Variable NST Reactive:: Appropriate for gestational age FHR Category:: Category II Uterine Activity:: every 2-3 min ROS Constitutional Constitutional: Reports systems reviewed and no addt'l complaints, except as documented; Denies headache(s) Eyes Eyes: Denies acute decrease in peripheral vision, blurry vision or change in vision ENT HEENT: Reports systems reviewed and no addt'l complaints, except as documented Cardiovascular Cardiovascular: Denies chest pain or dizziness Respiratory/Chest Respiratory/Chest: Denies cough, dyspnea, dyspnea on exertion, shortness of breath at rest or shortness of breath with exertion Gastrointestinal Gastrointestinal: Denies abdominal pain, diarrhea, nausea or vomiting Genitourinary Genitourinary: Denies abdominal discomfort Musculoskeletal Musculoskeletal: Denies limited range of motion Integumentary Integumentary: Reports systems reviewed and no addt'l complaints, except as documented Neurologic Neurologic: Reports systems reviewed and no addt'l complaints, except as documented Psychiatric Psychiatric: Reports systems reviewed and no addt'l complaints, except as documented Endocrine Endocrinology: Reports systems reviewed and no addt'l complaints, except as documented Hematologic/Lymphatic Hematologic/Lymphatic: Reports systems reviewed and no addt'l complaints, except as documented Allergic/Immunologic Allergic/Immunologic: Reports systems reviewed and no addt'l complaints, except as documented Vital Signs Vital Signs Vital Signs: 02/28/22 22:19 02/28/22 22:19 02/28/22 22:22 Temperature Temperature Source Pulse Rate 96 Blood Pressure 121/70 H BP Systolic 121 BP Diastolic 70 Pulse Ox 97 02/28/22 22:22 02/28/22 22:22 02/28/22 22:22 Temperature Temperature Source Temporal Pulse Rate 106 H Blood Pressure 121/70 H BP Systolic 121 BP Diastolic 70 Pulse Ox 02/28/22 22:22 02/28/22 22:22 02/28/22 22:22 Temperature 98.5 F Temperature Source Pulse Rate 101 H Blood Pressure BP Systolic BP Diastolic Pulse Ox 97 03/01/22 01:27 03/01/22 01:27 03/01/22 01:27 Temperature Temperature Source Pulse Rate 79 Blood Pressure 102/55 L BP Systolic 102 BP Diastolic 55 Pulse Ox 98 03/01/22 01:27 03/01/22 01:27 03/01/22 01:32 Temperature 97.6 F L Temperature Source Temporal Pulse Rate 87 Blood Pressure BP Systolic BP Diastolic Pulse Ox 03/01/22 01:32 03/01/22 02:34 03/01/22 02:34 Temperature Temperature Source Pulse Rate 81 Blood Pressure 93/52 L BP Systolic 93 BP Diastolic 52 Pulse Ox 98 03/01/22 02:34 03/01/22 02:34 03/01/22 02:34 Temperature 97.9 F Temperature Source Temporal Pulse Rate Blood Pressure BP Systolic BP Diastolic Pulse Ox 99 03/01/22 03:45 03/01/22 03:45 03/01/22 03:44 Temperature Temperature Source Pulse Rate 76 Blood Pressure 100/61 BP Systolic 100 BP Diastolic 61 Pulse Ox 100 03/01/22 04:32 03/01/22 04:32 03/01/22 05:53 Temperature Temperature Source Pulse Rate 77 Blood Pressure 91/50 L 95/53 L BP Systolic 91 95 BP Diastolic 50 53 Pulse Ox 03/01/22 05:53 03/01/22 06:22 03/01/22 06:22 Temperature Temperature Source Pulse Rate 72 69 Blood Pressure 102/62 BP Systolic 102 BP Diastolic 62 Pulse Ox 03/01/22 06:22 03/01/22 07:58 03/01/22 07:58 Temperature Temperature Source Pulse Rate 76 Blood Pressure 101/59 L BP Systolic 101 BP Diastolic 59 Pulse Ox 100 03/01/22 08:03 03/01/22 08:03 03/01/22 08:00 Temperature Temperature Source Tympanic Pulse Rate 72 Blood Pressure BP Systolic BP Diastolic Pulse Ox 98 03/01/22 08:00 03/01/22 08:00 03/01/22 08:16 Temperature 97.8 F Temperature Source Pulse Rate Blood Pressure 110/66 BP Systolic 110 BP Diastolic 66 Pulse Ox 98 03/01/22 08:16 03/01/22 08:17 03/01/22 08:17 Temperature Temperature Source Pulse Rate 76 84 Blood Pressure BP Systolic BP Diastolic Pulse Ox 99 03/01/22 08:20 03/01/22 08:20 03/01/22 08:22 Temperature Temperature Source Pulse Rate 76 79 Blood Pressure 102/58 L BP Systolic 102 BP Diastolic 58 Pulse Ox 03/01/22 08:22 03/01/22 08:25 03/01/22 08:25 Temperature Temperature Source Pulse Rate 77 Blood Pressure 94/52 L BP Systolic 94 BP Diastolic 52 Pulse Ox 99 03/01/22 08:27 03/01/22 08:27 03/01/22 08:30 Temperature Temperature Source Pulse Rate 76 Blood Pressure 99/57 L BP Systolic 99 BP Diastolic 57 Pulse Ox 98 03/01/22 08:30 03/01/22 08:32 03/01/22 08:32 Temperature Temperature Source Pulse Rate 78 81 Blood Pressure BP Systolic BP Diastolic Pulse Ox 98 03/01/22 08:37 03/01/22 08:37 03/01/22 08:37 Temperature Temperature Source Pulse Rate 82 80 Blood Pressure 97/55 L BP Systolic 97 BP Diastolic 55 Pulse Ox 03/01/22 08:37 03/01/22 08:40 03/01/22 08:40 Temperature Temperature Source Pulse Rate 76 Blood Pressure 101/51 L BP Systolic 101 BP Diastolic 51 Pulse Ox 98 03/01/22 08:42 03/01/22 08:42 03/01/22 08:45 Temperature Temperature Source Pulse Rate 70 Blood Pressure 98/54 L BP Systolic 98 BP Diastolic 54 Pulse Ox 99 03/01/22 08:45 03/01/22 08:47 03/01/22 08:47 Temperature Temperature Source Pulse Rate 75 76 Blood Pressure BP Systolic BP Diastolic Pulse Ox 99 03/01/22 08:51 03/01/22 08:51 03/01/22 08:52 Temperature Temperature Source Pulse Rate 74 81 Blood Pressure 101/52 L BP Systolic 101 BP Diastolic 52 Pulse Ox 03/01/22 08:52 03/01/22 08:58 03/01/22 08:58 Temperature Temperature Source Pulse Rate 72 Blood Pressure 108/54 L BP Systolic 108 BP Diastolic 54 Pulse Ox 99 03/01/22 08:58 03/01/22 08:58 03/01/22 09:01 Temperature Temperature Source Pulse Rate 85 Blood Pressure 103/57 L BP Systolic 103 BP Diastolic 57 Pulse Ox 99 03/01/22 09:01 03/01/22 09:03 03/01/22 09:03 Temperature Temperature Source Pulse Rate 72 74 Blood Pressure BP Systolic BP Diastolic Pulse Ox 99 03/01/22 09:26 03/01/22 09:26 03/01/22 09:26 Temperature Temperature Source Pulse Rate 69 Blood Pressure 84/43 L BP Systolic 84 BP Diastolic 43 Pulse Ox 99 03/01/22 09:34 03/01/22 09:34 03/01/22 09:41 Temperature Temperature Source Pulse Rate 58 L Blood Pressure 81/41 L 84/48 L BP Systolic 81 84 BP Diastolic 41 48 Pulse Ox 03/01/22 09:41 03/01/22 09:53 03/01/22 09:53 Temperature Temperature Source Pulse Rate 75 80 Blood Pressure 94/55 L BP Systolic 94 BP Diastolic 55 Pulse Ox 03/01/22 09:58 03/01/22 09:58 03/01/22 10:03 Temperature Temperature Source Pulse Rate 74 Blood Pressure 94/55 L 96/51 L BP Systolic 94 96 BP Diastolic 55 51 Pulse Ox 03/01/22 10:03 03/01/22 10:08 03/01/22 10:08 Temperature Temperature Source Pulse Rate 75 73 Blood Pressure 93/54 L BP Systolic 93 BP Diastolic 54 Pulse Ox 03/01/22 10:14 03/01/22 10:14 03/01/22 10:19 Temperature Temperature Source Pulse Rate 80 Blood Pressure 100/55 L 96/51 L BP Systolic 100 96 BP Diastolic 55 51 Pulse Ox 03/01/22 10:19 03/01/22 10:23 03/01/22 10:23 Temperature Temperature Source Pulse Rate 69 71 Blood Pressure 97/52 L BP Systolic 97 BP Diastolic 52 Pulse Ox 03/01/22 10:27 03/01/22 10:27 03/01/22 10:30 Temperature Temperature Source Pulse Rate 74 76 Blood Pressure 102/52 L BP Systolic 102 BP Diastolic 52 Pulse Ox 03/01/22 10:30 03/01/22 11:00 03/01/22 11:00 Temperature Temperature Source Pulse Rate 83 Blood Pressure 114/61 BP Systolic 114 BP Diastolic 61 Pulse Ox 100 03/01/22 10:30 03/01/22 10:30 03/01/22 10:30 Temperature 97.5 F L Temperature Source Tympanic Pulse Rate Blood Pressure BP Systolic BP Diastolic Pulse Ox 98 03/01/22 11:13 03/01/22 11:13 03/01/22 11:13 Temperature Temperature Source Tympanic Pulse Rate 80 Blood Pressure BP Systolic BP Diastolic Pulse Ox 100 03/01/22 11:13 03/01/22 11:13 03/01/22 11:30 Temperature 97.2 F L Temperature Source Pulse Rate Blood Pressure 107/58 L BP Systolic 107 BP Diastolic 58 Pulse Ox 99 03/01/22 11:30 03/01/22 12:00 03/01/22 12:00 Temperature Temperature Source Pulse Rate 85 86 Blood Pressure 106/57 L BP Systolic 106 BP Diastolic 57 Pulse Ox 03/01/22 12:30 03/01/22 12:30 03/01/22 12:45 Temperature Temperature Source Pulse Rate 76 Blood Pressure 109/59 L 123/55 H BP Systolic 109 123 BP Diastolic 59 55 Pulse Ox 03/01/22 12:45 03/01/22 12:45 03/01/22 12:45 Temperature 97.2 F L Temperature Source Tympanic Pulse Rate 94 Blood Pressure BP Systolic BP Diastolic Pulse Ox Weight Weight: 149 lb Body Mass Index (BMI) 27.2 Physical Exam Const alert and oriented x3 General Appearance: cooperative Orientation / Consciousness: awake, oriented to person, oriented to place and oriented to time Exam Limitations: no limitations HEENT normocephalic Head and Scalp: normal to inspection, normocephalic and atraumatic Face and Sinus: normal facial exam Eyes General Eye: normal appearance of both eyes Neck full ROM Chest Chest: symmetrical chest wall rise Resp normal respiratory effort and normal air movement Auscultation: clear to auscultation bilaterally Cardio regular rate, regular rhythm, S1 normal heart sound, S2 normal heart sound, no murmurs, no rub, no gallops and no clicks GI normal to inspection, nondistended, normoactive bowel sounds and non-tender appearance of the vagina normal Narrative: AROM clear fluid with forebag ruptured Bladder / Kidney Exam: no CVA tenderness Back/Spine normal ROM Extremity normal to inspection and full ROM Skin no rashes or lesions noted Neuro oriented x3, CN's II-XII intact bilaterally and moves all extremities Sensorium / Orientation: awake, alert and oriented to person Motor Exam: clonus absent Deep Tendon Reflexes: Rt Patellar (L4): 2+ and Lt Patellar (L4): 2+ Labs Labs Labs: Blood Type A NEGATIVE Antibody Screen POSITIVE H Hct 37.1 % (37-47) Hgb 11.9 g/dL (12.0-15.0) L Obstetrics US Group B Strep DNA Negative (Negative) Rhogam given: Yes rubella immune RPR negative HBsAG negative HepC negative HIV negative A negative, antibody screen negative Assessment & Plan (1) Tobacco use during : (2) UTI in : (3) History of depression: (4) History of chlamydia: (5) Rh negative blood type in fetus: PLAN: Plan 1) Admit to labor and delivery 2) Routine admission labs 3) Epidural for pain management 4) GBS not completed,. Will start PCN per protocol 5) Continuous monitoring 6) collaborative physician and notified of patient status
--- NOTE | 2022-03-01 13:02 | EX.PCM.OBRPT ---
Maternal Data Information SHERRY Calculator Estimated Delivery Date Method Current WG Current Estimate 03/24/22 Manual 36w 5d Vaginal Delivery Maternal Presentation Maternal Presentation: PPROM Type of Induction: Pitocin Operative Information Date of Procedure: 03/01/22 Pre-Operative Diagnosis: PPROM Post-Operative Diagnosis: Surgery / Procedure Performed: Spontaneous Vaginal Delivery Type of Anesthesia: Epidural Estimated Blood Loss: 250 ml Time of Delivery: 12:34 Findings Description of Procedure: Progressed to complete with urge to push. Epidural for pain management. of viable male over intact perineum. APGARS 8,9 respectively. Infant head delivered with body immediately forthcoming. Placed on maternal abdomen, strong cry. Mouth and nares suctioned for secretions. Pitocin started for active 3rd stage management. Cord doubly clamped and cut by FOB after pulsations ceased, delayed cord clamping. Placenta delivered intact via marva, 3 vessel cord intact. Inspected and revealed hole from maternal side to side of placenta. Sent to pathology for probable abruption. Perineum inspected and intact. Fundus firm and hemostasis achieved. EBL 250ml. Mom and baby stable, planning to breastfeed. Family bonding well. notified of delivery. Presentation: Vertex Amniotic Membrane Rupture Type: Spontaneous Time of Membrane Rupture: 0700 03/01/22. Forebag AROM Amniotic Fluid Description: Clear Placental Delivery Description: Spontaneous Placenta Disposition: Routine to Lab Specimen(s) Removed: Hole found in placenta after delivery. Placenta intact. Cord Vessel Description: 3 Vessels Cord Entanglement: None A Gender: Male (1 minute): 8 (5 minute): 9 Delayed Cord Clamping: Yes Post Vaginal Delivery Medications Given After Delivery: IV Pitocin Episiotomy Description: None Laceration: None Complication Complications: None
[2022-03-01 16:12] LABS: Pathology Specimen OB SEE PATHOLOGY REPORT
[2022-03-02 01:00] VITALS: BP 100/53; PULSE 69; RESP 16; TEMP 36.7
[2022-03-02] MEDS: Ibuprofen 600 MG Tablet PO (01:07)
[2022-03-02] MEDS: Acetaminophen 500 MG Tablet 1000 MG PO (05:12)
[2022-03-02 05:29] VITALS: BP 114/51; PULSE 76; RESP 16; TEMP 36.5
[2022-03-02 05:51] LABS: Hematocrit 35.3 % (37-47); Hemoglobin 11.1 g/dL (12.0-15.0); Mean Corp Hgb Conc 31.4 g/dL (32-36); Mean Corpuscular Hgb 28.8 pg (27.0-32.0); Mean Corpuscular Volume 91.7 fL (81-99); Mean Platelet Vol. 10.4 fl (6.2-12.0); Platelet Count 218 K/mm3 (150-450); RBC Distribution Width CV 13.7 % (11.6-14.6); RBC Distribution Width SD 45.5 fl (35.1-43.9); Red Blood Count 3.85 M/mm3 (4.2-5.4); White Blood Count 15.4 K/mm3 (4.4-11.0)
[2022-03-02 08:00] VITALS: BP 103/40; PULSE 72; RESP 18; TEMP 36.4; O2SAT 99
[2022-03-02 13:30] VITALS: BP 104/61; PULSE 87; RESP 18; TEMP 36.6
--- NOTE | 2022-03-02 13:41 | PN.OBGYN_ITS ---
Subjective Subjective Doing well per patient and nursing staff. Ambulating and taking PO without difficulty. Voiding and passing flatus. Pain controlled. , services for assistance. Denies headache, visual changes, chest pain, shortness of breath, leg pain or increased bleeding. Lochia normal. Objective Data Objective Data Vital Signs: Vital Signs Temp Pulse Resp BP Pulse Ox O2 Del Method 97.5 F L 72 18 103/40 L 99 Room Air 03/02/22 08:00 03/02/22 08:00 03/02/22 08:00 03/02/22 08:00 03/02/22 08:00 03/02/22 08:00 Oxygen Delivery Method Room Air Weight: 149 lb Body Mass Index (BMI) 27.2 Intake & Output: Intake and Output for Last 24 Hours 02/28/22 03/01/22 03/02/22 23:59 23:59 23:59 Intake Total 3417.00 / 3417.00 Output Total 3900 / 3900 Balance -483.00 / -483.00 Lab / Micro Data Result Diagrams: 03/02/22 05:35 Labs: Laboratory Results - last 24 hr 03/02/22 05:35: WBC 15.4 H, RBC 3.85 L, Hgb 11.1 L, Hct 35.3 L, MCV 91.7, MCH 28.8, MCHC 31.4 L, RDW Std Deviation 45.5 H, RDW Coeff of Anisha 13.7, Plt Count 218, MPV 10.4 03/02/22 05:35: Screen NEGATIVE, Baby's Blood Type O POSITIVE, Baby's TATE NEGATIVE Micro: Microbiology 03/01/22 Unknown Genital vaginal Group B Streptococcus Culture - Preliminary ROS Constitutional Constitutional: Reports systems reviewed and no addt'l complaints, except as documented; Denies headache(s) Eyes Eyes: Denies acute decrease in peripheral vision, blurry vision or change in vision ENT HEENT: Reports systems reviewed and no addt'l complaints, except as documented Cardiovascular Cardiovascular: Denies chest pain or dizziness Respiratory/Chest Respiratory/Chest: Denies cough, dyspnea, dyspnea on exertion, shortness of breath at rest or shortness of breath with exertion Gastrointestinal Gastrointestinal: Denies abdominal pain, diarrhea, nausea or vomiting Genitourinary Genitourinary: Denies abdominal discomfort Musculoskeletal Musculoskeletal: Denies limited range of motion Integumentary Integumentary: Reports systems reviewed and no addt'l complaints, except as documented Neurologic Neurologic: Reports systems reviewed and no addt'l complaints, except as documented Psychiatric Psychiatric: Reports systems reviewed and no addt'l complaints, except as docume nted Endocrine Endocrinology: Reports systems reviewed and no addt'l complaints, except as documented Hematologic/Lymphatic Hematologic/Lymphatic: Reports systems reviewed and no addt'l complaints, except as documented Allergic/Immunologic Allergic/Immunologic: Reports systems reviewed and no addt'l complaints, except as documented Physical Exam Const alert and oriented x3 General Appearance: cooperative Orientation / Consciousness: awake, oriented to person, oriented to place and oriented to time Exam Limitations: no limitations HEENT normocephalic Head and Scalp: normal to inspection, normocephalic and atraumatic Face and Sinus: normal facial exam Eyes General Eye: normal appearance of both eyes Neck full ROM Chest Chest: symmetrical chest wall rise Resp normal respiratory effort and normal air movement Auscultation: clear to auscultation bilaterally Cardio regular rate, regular rhythm, S1 normal heart sound, S2 normal heart sound, no murmurs, no rub, no gallops and no clicks GI normal to inspection, nondistended, normoactive bowel sounds and non-tender appearance of the vagina normal Bladder / Kidney Exam: no CVA tenderness Back/Spine normal ROM Extremity normal to inspection and full ROM Skin no rashes or lesions noted Neuro oriented x3, CN's II-XII intact bilaterally and moves all extremities Sensorium / Orientation: awake, alert and oriented to person Motor Exam: clonus absent Deep Tendon Reflexes: Rt Patellar (L4): 2+ and Lt Patellar (L4): 2+ Assessment & Plan (1) Rh negative blood type in fetus: (2) Tobacco use during : (3) Vaginal delivery: (4) Lactating mother: PLAN: Plan 1) Routine care 2) Vitals stable 3) Pain controlled 4) without difficulty 5) D/C home today 6) Follow up in 2 weeks and 6 weeks PP
--- NOTE | 2022-03-02 13:46 | PCM.DC.SUM ---
Providers Date of Admission: 02/28/22 Primary Care Physician: Carly Primary Care Phys Reason For Visit: VAGINAL DELIVERY Diagnosis Discharge Diagnosis (1) Rh negative blood type in fetus: Status: Acute (2) Tobacco use during : Status: Acute Code(s): O99.330 - Smoking (tobacco) complicating , unspecified trimester (3) Vaginal delivery: Status: Acute Code(s): O80 - Encounter for full-term uncomplicated delivery (4) Lactating mother: Status: Acute Code(s): Z39.1 - Encounter for care and examination of lactating mother Plan 1) Routine care 2) Vitals stable 3) Pain controlled 4) without difficulty 5) D/C home today 6) Follow up in 2 weeks and 6 weeks PP Medications at Discharge Home Medications 1 tab PO/SL DAILY 10/22/21 acetaminophen 500 mg tablet 1,000 mg PO Q6H PRN PRN Pain 1-10 Or Fever #0 tabs 03/02/22 ibuprofen 600 mg tablet 600 mg PO Q6H PRN PRN Pain Score 1-3 #0 tabs 03/02/22 vits,calcium no.78-iron fumarate-folic acid 29 mg-1 mg tablet (Prenatabs FA) 1 tab PO DAILY@1200 #0 tabs 03/02/22 Weight / BMI Weight Weight: 149 lb Body Mass Index (BMI) 27.2 ABG / Lab / Microbiology Data Result Diagrams: 03/02/22 05:35 Laboratory: Laboratory Results - last 24 hr 03/02/22 05:35: WBC 15.4 H, RBC 3.85 L, Hgb 11.1 L, Hct 35.3 L, MCV 91.7, MCH 28.8, MCHC 31.4 L, RDW Std Deviation 45.5 H, RDW Coeff of Anisha 13.7, Plt Count 218, MPV 10.4 03/02/22 05:35: Screen NEGATIVE, Baby's Blood Type O POSITIVE, Baby's TATE NEGATIVE Microbiology: Microbiology 03/01/22 Unknown Genital vaginal Group B Streptococcus Culture - Preliminary Meaningful Use Info Meaningful Use Diagnoses (Choose all that apply): None applicable Discharge Plan Admission Admit Date/Time: 02/28/22 23:30 Primary Reason for Your Visit: Vaginal Delivery Attending Provider: Pamela Schultz Primary Care Provider: Care Physician,No Primary Instructions Patient Instructions: After a Vaginal Discharge Orders/Prescriptions Prescriptions: New Prenatabs FA 29-1 mg Tablet 1 tab PO DAILY@1200 Qty: 0 0RF acetaminophen 500 mg Tablet 1,000 mg PO Q6H PRN PRN (Reason: Pain 1-10 Or Fever) Qty: 0 0RF ibuprofen 600 mg Tablet 600 mg PO Q6H PRN PRN (Reason: Pain Score 1-3) Qty: 0 0RF No Action 1 tab PO/SL DAILY Referrals / Follow Up: Care Physician,No Primary [Primary Care Provider] - Disposition Disposition (needs filled in before D/C Order can be placed): Home, Self Care
[2022-03-02] MEDS: Prenatal Vits Tablet 1 TABLET PO (14:33)
== END 2022-03-02 17:25 | disposition home or self-care (01) | DRG 560 ==
LOC: WPOUT 23:33 → WP 23:33
PROVIDERS: Admitting Provider Advanced Practice Midwife; Visit Provider Advanced Practice Midwife
DX: O42.913 Preterm premature rupture of membranes, unspecified as to length of time between rupture and onset of labor, third trimester (principal); Z37.0 Single live birth; F17.200 Nicotine dependence, unspecified, uncomplicated; Z3A.36 36 weeks gestation of pregnancy; O99.334 Smoking (tobacco) complicating childbirth; O26.893 Other specified pregnancy related conditions, third trimester; Z67.11 Type A blood, Rh negative
CPT/HCPCS: 59025; 59050; 84112; 85025; 85027; 85461; 86850; 86870; 86900; 86901; 87081; 87653; 88307; 99221; 99406; J7120; A4216; G0378; J2790

== ENCOUNTER 2022-04-25 07:04 | Day surgery (SDC) | payer MEDICAID, SELFPAY ==
--- NOTE | 2022-04-15 13:22 | PCM.HP.BLA ---
History and Physical Date of Admission: 03/28/22 HPI: The patient is a 21 year old female presenting for pre-operative visit. She is scheduled for laparoscopic bilateral salpingectomy, for sterilzation at [facility] on 04/25/22. Procedure discussed along with risks, benefits and complications. Other alternatives discussed for management. Consent form signed? Yes. ? ? PAST MEDICAL HISTORY PAST MEDICAL HISTORY Diagnosis Date ? #[id number] ? ? Anemia during in third trimester 01/19/2019 ? Asthma ? ? No attacks since 2019 ? Chlamydia 05/2018 ? PPH ? infant seizure ? ? febrile ? Tobacco use disorder ? ? Unintentional weight loss ? ? 2020 ? ? PAST SURGICAL HISTORY PAST SURGICAL HISTORY Procedure Laterality Date ? TONSILLECTOMY AND ADENOIDECTOMY HX ? 2002 ? ? ? CURRENT MEDICATIONS Current Outpatient Medications Medication Sig Dispense Refill ? prental multivitamin 27 mg iron- 800 mcg tablet Take 1 tablet by mouth once daily. ? ? ? No current facility-administered medications for this visit. ? ? ALLERGIES: Dimetapp Allergy Sinus and Zithromax [Azithromycin] ? PERSONAL HISTORY: SOCIAL HISTORY Social History ? Tobacco Use ? Smoking status: Some Days ? ? Years: 5.00 ? ? Types: Cigarettes ? Smokeless tobacco: Never ? Tobacco comments: ? ? 5-6 cigarettes a day Vaping Use ? Vaping Use: Former Substance Use Topics ? Alcohol use: Not Currently ? ? Comment: 1 drink per month ? Drug use: Never ? FAMILY HISTORY: FAMILY HISTORY FAMILY HISTORY Problem Relation Age of Onset ? Diabetes Mother ? ? Kidney Disease Mother ? ? Pancreatitis Mother ? ? No Known Problems Father ? ? Pancreatitis Maternal Grandmother ? ? Diabetes Maternal Grandmother ? ? Heart Attack Maternal Grandmother ? ? Diabetes Maternal Grandfather ? ? Hypertension Maternal Grandfather ? ? No Known Problems Paternal Grandmother ? ? No Known Problems Paternal Grandfather ? ? No Known Problems Daughter ? ? No Known Problems Daughter ? ? No Known Problems Sister ? ? No Known Problems Brother ? ? ? REVIEW OF SYMPTOMS: GENERAL: denies fevers or chills ENDOCRINOLOGY: has not been on steroids Cardiology : denies palpitations or chest pain Respiratory: denies SOB or cough Hematology: denies history of prolonged bleeding or easy bruising or VTE Allergy: Denies history of personal or family history of allergy to anesthesia ? PHYSICAL EXAMINATION: ? VITALS: Last menstrual period 06/12/2021, currently . ? GENERAL: The patient is well nourished, well hydrated in no acute distress. , The patient is oriented to time, place, and person. NECK: Supple. No lynphadenopathy, normal thyroid, no thyromegaly. LUNGS: Clear to auscultation bilaterally. no wheezes, rhonchi or rales HEART: Regular rate and rhythm, Normal heart sounds, and No murmurs or gallops ? IMPRESSION: Sterilization request ? PLAN: The risks/benefits/alternatives and personal involved for the planned laparoscopic bilateral salpingectomy were reviewed with the patient. Her questions were answered to her satisfaction and she desires to proceed. Consent was signed. I reviewed with her postop instructions and expectations. Risks, benefits and alternatives to sterilization have been discussed with the patient. She declines reversible options including LARC. She understands sterilization is permanent, irreversible, risks of failure, regret and ectopic. In addition she understands there are surgical risks as well. Her questions were answered to her satisfaction and consent was signed. ? I have reviewed and updated past medical and surgical history, medications and allergies Assessment & Plan Assessment/Plan (1) Encounter for female sterilization procedure:
[2022-04-25] VITALS (7 sets, daily range): BP systolic 91–103; BP diastolic 51–69; PULSE 50–69; RESP 16–18; TEMP 36.2–36.6; O2SAT 97–100; BMI 24.2
[2022-04-25] MEDS: Acetaminophen 500 MG Tablet 1000 MG PO (07:37)
[2022-04-25] MEDS: Lactated Ringers 1,000 ML 75 ML IV ×2 (07:37→08:55)
[2022-04-25] MEDS: Ketorolac 30 MG/ML Syringe IV (07:37)
[2022-04-25 07:42] LABS: Internal QC Validated? YES +Cl - CLEAR BKGD; Pregnancy, Urine Negative Negative
[2022-04-25 07:46] LABS: Hematocrit 43.3 % (37-47); Hemoglobin 13.4 g/dL (12.0-15.0); Mean Corp Hgb Conc 30.9 g/dL (32-36); Mean Corpuscular Hgb 28.6 pg (27.0-32.0); Mean Corpuscular Volume 92.5 fL (81-99); Mean Platelet Vol. 9.5 fl (6.2-12.0); Platelet Count 299 K/mm3 (150-450); RBC Distribution Width CV 13.9 % (11.6-14.6); RBC Distribution Width SD 47.4 fl (35.1-43.9); Red Blood Count 4.68 M/mm3 (4.2-5.4); White Blood Count 6.2 K/mm3 (4.4-11.0)
--- NOTE | 2022-04-25 08:43 | DCINST_ITS ---
Discharge Instructions Diet Discharge Diet: No restrictions Activity Discharge Activity: May Drive (04/26/22 TOLERATED) Return to work on:: 04/28/22 May resume sexual activity in: 1 week Lifting Restrictions: 15 LBS X1 WEEK Dressing / Incision Call your doctor if your incision/area has: Continuous Slow Oozing, Increased Pain/ Swelling and Foul Smelling Discharge Call your doctor if you observe: Inability to urinate and Using more than 1 pad per hour Cleanse incision/area with: Soap & Water (your incision has skin glue, it can get wet. Please leave it on for at least 10 days) Follow Up Care Please Follow Up With: Mary Alice Perez MD When: as needed. Call [phone] or send a [employer] message if you have any questions or concerns. Test Results: Test results from this visit will be discussed in further detail at your follow- up appointment, if applicable. Discharge Plan Admission Attending Provider: Mary Alice Perez Primary Care Provider: Care Physician,Carly Primary Discharge Orders/Prescriptions Prescriptions: No Action Prenatabs FA 29-1 mg Tablet 1 tab PO DAILY@1200 Qty: 0 0RF Probiotic 3 billion cell Capsule 3,000 mmu cells PO DAILY Rx Instructions: administer with a meal Referrals / Follow Up: Care Physician,No Primary [Primary Care Provider] - Disposition Disposition (needs filled in before D/C Order can be placed): Home, Self Care
--- NOTE | 2022-04-25 08:50 | FALS_PTH ---
PATIENT: VERONICA MALDONADO LOC: [facility] – [place] U#:[id number] AGE/SX: ROOM: RE04/25/[address]: Dr. Mary Alice Perez MD : 2000 BED: DIS: 04/25/2022 SPEC #: [id number] RECD: 04/25/22 10:57 STATUS: MICAH REQ #: [id number] KENDALL: 04/25/22 08:[address]: Mary Alice Perez DEPT: SURGICAL PATHOLOGY RECD BY: Fiona Jimenez ENTERED: 04/25/22 11:47 SP TYPE: FALL TUBES OTHR DR: No Primary Care Phys Tissues: Fallopian tube Procedures: Surgery Specimen Level II HEADER OPERATION: Laparoscopic salpingectomy PRE-OP DIAGNOSIS: Sterilization TISSUE SUBMITTED: Bilateral fallopian tubes MICROSCOPIC DIAGNOSIS Bilateral fallopian tubes, salpingectomy: Bilateral fallopian tubes, no pathologic diagnosis. FERNIE:[email or web address] 04/28/2022 MICROSCOPIC DESCRIPTION Slides are reviewed. GROSS DESCRIPTION Received in fixative is one container labeled with the patient's name and designated bilateral fallopian tubes. The specimen consists of bilateral fallopian tubes including fimbrial ends measuring 8.0 cm in length and 0.5 cm in diameter and 6.5 cm in length and 0.5 cm in diameter. The fallopian tubes are not identified as right or left. Sections reveal unremarkable cut surfaces. Hazardous Material Specialist sections are submitted in two cassettes with each cassette containing one fallopian tube. / SJ:maurisio 04/25/2022 TC:4 CPT: 24742 x2
[2022-04-25] MEDS: Bupivacaine 0.5% PF 10 ML VIAL (09:08)
--- NOTE | 2022-04-25 09:11 | PCM.OPRPT ---
Problems Associated Problem List Diagnoses (1) Encounter for female sterilization procedure: Report of Operation Date of Procedure: 04/25/22 Pre-Operative Diagnosis: Sterilization request Post-Operative Diagnosis: Same Surgery/Procedure Performed:: Laparoscopic bilateral salpingectomy Description of Surgical Findings:: Normal cervix, uterus tubes and ovaries. Surgeon: Mary Alice Perez survey workers supervisor: LOUISA Fernandez Type of Anesthesia: General Anesthesiologist: Leandra Guo Special Medications: none Specimen's removed: Bilateral fallopian tubes Drains: none Estimated Blood Loss (mL): 5 Fluids Replaced: 1100 Description of Procedure: The patient was taken to the operating room where she was prepped and draped in the dorsolithotomy position. A weighted speculum was placed in the vagina and the anterior lip of the cervix was grasped with a tenaculum. The acRE2 uterine manipulator was placed and the remainder of the instruments were removed from the vagina. Attention was turned to the abdomen. All port sites were infiltrated with 0.5% Marcaine before skin incisions were made. A 5 mm [intraumbilical] incision was made. The anterior abdominal wall was tented up with 2 towel clamps while a 5 mm blade less trocar and sleeve were [directly inserted]. Intraperitoneal placement was confirmed with the laparoscope. The pneumoperitoneum was created and the underlying abdominal contents were intact. The patient was placed in Trendelenburg. Right and left lower quadrant ports were placed under direct visualization lateral to the inferior epigastric vessels. The bowel was swept away and the above findings were noted. The Enseal device was used to clamp seal and transect the antimesenteric portions of the right tube to the cornual insertion of the uterus. The tube was amputated from the uterus and the pedicles were all confirmed to be hemostatic. The same procedure was performed on the contralateral side. The specimens were brought out through a 5 mm port. The pedicles were again examined and found to be hemostatic. The lateral ports were removed under direct visualization and no active bleeding was noted. The pneumoperitoneum was released. The skin incisions were closed with Monocryl suture in a subcuticular fashion and skin glue . The vaginal instruments were removed and the vaginal sweep was completed by me. The procedure was performed by me with assistance. All sponge and needle counts were correct and the patient was taken to the recovery room in stable condition. Grafts/Implants Used: None Procedure Start Time: 08:48 Procedure Stop Time: 09:08 Complications None Admit VTE Documentation VTE Present on Admission: No VTE Mechan Device Prophylaxis: SCD's VTE Pharm Prophylaxis ordered?: No Reason prophylaxis not ordered:: Procedure Not Indicated
== END 2022-04-25 11:15 | disposition home or self-care (01) ==
LOC: SDC 07:05 → AC 07:06
PROVIDERS: Referring Provider Obstetrics & Gynecology; Visit Provider Obstetrics & Gynecology
PROC: (CPT 58661; principal; 2022-04-25 08:35)
DX: Z30.2 Encounter for sterilization (principal); F17.210 Nicotine dependence, cigarettes, uncomplicated; Z86.59 Personal history of other mental and behavioral disorders; Z86.19 Personal history of other infectious and parasitic diseases
CPT/HCPCS: 58661; 00840; 81025; 85027; 88302; J7120; C1760; J2405